=== PATIENT | female | born 1960 | race African-American/Black ===

== ENCOUNTER 2024-05-19 00:39 | Emergency (ER) | payer OTHER ==
[~2024-05-19] VITALS: Ht 165.1 cm; Wt 46.0 kg
[2024-05-19 00:47] VITALS: O2SAT 100
[2024-05-19 01:12] LABS: BASOPHILS % 0.1 % (0.0-2.0); EOSINOPHILS % 0.1 % (0.0-5.0); HEMATOCRIT. 32.5 % (36.0-48.0); HEMOGLOBIN. 10.7 g/dL (12.0-16.0); LYMPHOCYTES % 13.9 % (20.0-50.0); MEAN CORPUSCULAR HEMOGLOBIN 29.7 pg (28.0-32.0); MEAN CORPUSCULAR HGB CONC 32.8 g/dL (31.0-37.0); MEAN CORPUSCULAR VOLUME 90.3 fL (81.0-99.0); MEAN PLATELET VOLUME 6.9 fl (7.4-10.4); MONOCYTES % 5.8 % (2.0-8.0); NEUTROPHILS % 80.1 % (40.0-76.0); PLATELET 177 x1000/uL (130-400); RED CELL DISTRIBUTION WIDTH 15.6 % (11.6-14.6); WHITE BLOOD COUNT 3.7 x1000/uL (4.5-11.0)
[2024-05-19 01:15] LABS: CHLORIDE 107 mEq/L (98-107); CLARITY URINE CLOUDY (CLEAR); COLOR URINE DARK YELLOW (YELLOW); GLUCOSE URINE TRACE (NEGATIVE); KETONES URINE 1+ (NEGATIVE); LEUKOCYTE ESTERASE URINE NEGATIVE (NEGATIVE); NITRITE URINE NEGATIVE (NEGATIVE); OCCULT BLOOD URINE 1+ (NEGATIVE); PROTEIN URINE 1+ (NEGATIVE); SPECIFIC GRAVITY URINE 1.023 (1.005-1.030)
[2024-05-19 01:16] LABS: CARBON DIOXIDE 27 mEq/L (21-32); POTASSIUM 3.9 mEq/L (3.5-5.1); SODIUM 141 mEq/L (136-145)
[2024-05-19 01:17] LABS: CALCIUM 9.6 mg/dL (8.7-10.4)
[2024-05-19 01:21] LABS: CREATININE 1.6 mg/dL (0.6-1.0); GLUCOSE 161 mg/dL (70-105)
[2024-05-19 01:22] LABS: TROPONIN I HIGH SENSITIVITY 4 ng/L (3.0-34); UREA NITROGEN BLOOD 21 mg/dL (9-23)
[2024-05-19 01:23] LABS: CREATINE KINASE 71 IU/L (34-145)
[2024-05-19 01:27] LABS: *AMPHETAMINES SCREEN URINE NEGATIVE (NEGATIVE); *BARBITURATES SCREEN URINE NEGATIVE (NEGATIVE); *BENZODIAZEPINES SCREEN URINE PRESUMPTIVE POSITIVE (NEGATIVE); *COCAINE SCREEN URINE NEGATIVE (NEGATIVE); CANNABINOID URINE SCREEN NEGATIVE (NEGATIVE); ECSTASY MDMA SCREEN URINE NEGATIVE (NEGATIVE); METHADONE URINE SCREEN NEGATIVE (NEGATIVE); OPIATES URINE SCREEN NEGATIVE (NEGATIVE); PHENCYCLIDINE URINE SCREEN NEGATIVE (NEGATIVE)
[2024-05-19 01:36] LABS: BACTERIA URINE 1+; RBC URINE 15-25 /hpf (0-2); SQUAMOUS EPITHELIAL CELL URINE NONE SEEN /lpf (RARE/1+); WBC URINE 0-2 /hpf (0-2)
[2024-05-19 01:56] LABS: ETHANOL BLOOD < 10 mg/dL (<10)
[2024-05-19 05:26] VITALS: BP 143/76; PULSE 82; RESP 17; TEMP 36.78072; O2SAT 97
== END 2024-05-19 06:01 | disposition home or self-care (01) ==
LOC: ER 00:39
DX: R55 Syncope and collapse (principal); I10 Essential (primary) hypertension; Z00.00 Encounter for general adult medical examination without abnormal findings; Z85.118 Personal history of other malignant neoplasm of bronchus and lung
CPT/HCPCS: 36415; 71045; 71250; 80048; 80305; 80320; 81003; 82550; 82962; 84484; 85025; 99284; G0480